=== PATIENT | female | born 1995 | race Caucasian/White ===

== ENCOUNTER 2017-02-21 05:52 | Day surgery (SDC) | payer OTHER ==
[2017-02-18 17:50] LABS: HEMATOCRIT 35.9 % (36.0-48.0); HEMOGLOBIN 11.6 g/dL (12.0-16.0)
--- NOTE | ~2017-02-21 | OP ---
Record Of Operation [facility] [address] [place]. [address] NAME: TALIA BRANDON : 89 [place]US : [place] [facility] [place] [id number] AGE: 21 ADM/REG DATE : 02/21/17 MR#: [id number] REPORT SERV DATE: 02/21/17 DICTATED BY: WALTER YEN DATE: 02/21/17 REPORT STATUS : Draft TRANSCRIBED BY: MODL DATE: 02/21/17 DATE OF PROCEDURE: 02/21/2017 PREOPERATIVE DIAGNOSIS: Chronic tonsillitis. POSTOPERATIVE DIAGNOSIS: Chronic tonsillitis with adenoid hypertrophy. OPERATIONS/PROCEDURES: Tonsillectomy and adenoidectomy. ANESTHESIA: General endotracheal. ESTIMATED BLOOD LOSS: 10 mL. INTRAOPERATIVE FLUIDS: 1 L of crystalloid. INTRAOPERATIVE FINDINGS: 2+ chronically inflamed tonsils, bilaterally, with extensive scarring to the surrounding muscular pocket of the tonsillar fossa, more so on the right side than the left. Moderate adenoid hypertrophy, obstructing greater than 50% of the posterior cornu for which an adenoidectomy was performed. OPERATIVE PROCEDURE: The patient was identified in the holding room, transported to the operating room. In the operating room, patient was placed on the operating table in the supine position. Following induction of anesthesia, the patient was intubated without difficulty. The table was turned 90 degrees for the operative procedure. A Meagan-Nam retractor was placed for exposure the oropharynx. Palpation of the soft palate revealed no evidence of a submucous cleft. There was no bifid uvula evident. A red rubber catheter was fed through the right naris and withdrawn through the mouth for elevation of the soft palate. The tonsillar fossae were injected with 0.25% Marcaine, bilaterally. Beginning on the right side, the right tonsil was grasped with a curved Allis clamp and retracted medially for exposure of the anterior tonsillar pillar. A plane of dissection was established between the capsule of the tonsil and muscular wall of the tonsillar fossa. This plane of dissection was carried from the superior to inferior pole. As noted above, there was significant scarring between the tonsil and the muscular wall of the tonsillar fossa, however, a complete removal of the tonsil tissue was accomplished. At the inferior pole, the specimen was transected and the tonsil was removed. A tonsil pack dipped in Adrenalin bismuth subgallate was placed into the right tonsillar fossa. The left tonsil was then removed in a similar fashion. The packs from the tonsillar fossae were removed. Examination of the nasopharynx did reveal moderate adenoid hypertrophy, as noted above. The adenoid tissue was removed with the use of the suction cautery. A ridge of adenoid tissue was retained inferiorly at [place] ridge. The nasopharynx was irrigated and hemostasis was confirmed. The tonsillar fossae were re-examined with confirmation of hemostasis in this area. The red rubber catheter was removed and a gastric suction was passed. The Meagan Nam retractor was loosened for approximately 30 seconds and then reapplied with no evidence of residual bleeding. The retractor was removed. The patient was awakened from anesthesia. The patient was extubated in the operating room, transported to the recovery room in good condition. The patient tolerated the procedure well. There were no apparent Record Of Operation [address] [id number] NAME: TALIA BRANDON : 89 STATUS : REG [facility]#: [id number] AGE: 21 ADM/REG DATE : 02/21/17 MR#: [id number] REPORT SERV DATE: 02/21/17 DICTATED BY: WALTER YEN DATE: 02/21/17 REPORT STATUS : Draft TRANSCRIBED BY: BINA DATE: 02/21/17 complications. Specimens included bilateral tonsils. GABY/BINA Walter Yen M.D. / [id number] CC: Brendan Nickerson AMANDA M
[~2017-02-21 05:52] MED LIST: LEXAPRO10 PO; PROAIR HFA INH
== END 2017-02-21 14:37 | disposition home or self-care (01) ==
LOC: SDC 05:52
PROVIDERS: Otolaryngology
PROC: 0CTQ0ZZ Resection of Adenoids, Open Approach (ICD-10-PCS; 2017-02-21)
PROC: 0CTPXZZ Resection of Tonsils, External Approach (ICD-10-PCS; principal; 2017-02-21 07:15)
DX: J35.01 Chronic tonsillitis (principal); J35.1 Hypertrophy of tonsils; F32.9 Major depressive disorder, single episode, unspecified
CPT/HCPCS: 84703; 85014; 85018; 88304; A9270-GY; J0690; J1170; J2250; J2405; J3010